=== PATIENT | male | born 1995 | race Caucasian/White ===

== ENCOUNTER 2018-05-08 16:55 | Emergency (ER) | payer BC, OTHER | END 2018-05-08 18:03 | disposition home or self-care (01) | LOC: MADERS 16:55 | DX: B34.9 Viral infection, unspecified (principal) | CPT/HCPCS: 87804; 99283 ==

== ENCOUNTER 2018-06-03 10:53 | Emergency (ER) | payer BC, OTHER ==
[2018-06-03 11:29] LABS: Bilirubin Negative (Negative); Blood, Urine Trace (Negative); Clarity Hazy (Clear); Glucose, Urine (Dipstick) Negative (Negative); Leukocyte Negative (Negative); Nitrite Negative (Negative); Protein, Urine (Dipstick) 30 mg/dL (Neg-Trace); Specific Gravity, Urine 1.025 (1.005-1.030); Urobilinogen 0.2 mg/dL (0.2-1.0); pH, Urine 5.5 (5.0-9.0)
[2018-06-03 11:35] LABS: Bacteria/HPF Rare-Few HPF (None Seen); RBC/HPF 0-3 HPF (0-3); WBC/HPF None Seen HPF (0-3)
[2018-06-03] MEDS ORDERED: Prochlorperazine 10 MG/2 ML VIAL ONE (11:50)
== END 2018-06-03 11:55 | disposition home or self-care (01) ==
LOC: MADERS 10:53
DX: K52.9 Noninfective gastroenteritis and colitis, unspecified (principal)
CPT/HCPCS: 81003; 81015; 82274; 83630; 87045; 87046; 87328; 87329; 87449; 87899; 96372; J0780

== ENCOUNTER 2018-07-11 19:29 | Emergency (ER) | payer BC, OTHER ==
[2018-07-11] MEDS ORDERED: methylPREDNISolone Sod Succ/PF 125 MG/2 ML VIAL ONE (20:11)
[2018-07-11] MEDS ORDERED: Water For Inject, Bacteriostat 0 ML ONE (20:11)
[2018-07-11] MEDS ORDERED: diphenhydrAMINE 50 MG/ML VIAL ONE (20:11)
[2018-07-11 20:35] LABS: #Basophils 0.1 thou/uL (0.0-0.2); #Eosinphils 0.1 thou/uL (0.0-0.7); #Lymphocytes 3.6 thou/uL (1.20-3.40); #Monocytes 1.2 thou/uL (0.11-0.59); %Basophils 0.8 % (0.0-1.0); %Eosinophils 0.5 % (0.0-10.0); %Lymphocytes 25.9 % (21.0-51.0); %Monocytes 8.2 % (0.0-10.0); %Neutrophils 64.6 % (42.0-75.0); Hemoglobin 13.7 g/dL (14.0-18.0); Mean Corpuscular HGB CONC 34.1 g/dL (32.0-36.0); Mean Corpuscular Hemoglobin 29.9 pg (27.0-31.0); Mean Corpuscular Volume 87.6 fL (78.0-98.0); Mean Platelet Volume 8.8 fL (7.4-10.4); Platelet Count 171 thou/uL (130-400); Red Blood Cell (RBC) Count 4.57 mill/uL (4.70-6.10)
--- NOTE | 2018-07-11 20:36 | RAD ---
PORTABLE CHEST: 07/11/18 HISTORY: Cough. Lungs appear clear. No infiltrate. Heart and mediastinum unremarkable. IMPRESSION: Negative chest. POS: AGW
[2018-07-11 21:00] LABS: ALT (SGPT) 20 U/L (8-55); AST (SGOT) 15 U/L (5-34); Albumin 4.4 g/dL (3.5-5.0); Alkaline Phosphatase 92 U/L (40-150); Anion Gap 14 mmol/L (10-20); BUN (Urea Nitrogen) 14 mg/dL (8.9-20.6); Bilirubin, Total 0.8 mg/dL (0.2-1.2); Calc. Creatinine Clearance 0 mL/min (70-130); Calcium 9.3 mg/dL (7.8-10.44); Carbon Dioxide 25 mmol/L (22-29); Chloride 105 mmol/L (98-107); Estimated GFR-MDRD Greater than 90; Globulin 2.8 g/dL (2.4-3.5); Glucose 112 mg/dL (70-105); Protein, Total 7.2 g/dL (6.0-8.3); Sodium 141 mmol/L (136-145)
[2018-07-11 21:03] LABS: Potassium 2.9 mmol/L (3.5-5.1)
[2018-07-11] MEDS ORDERED: Potassium Chloride 20 MEQ TAB ONE (21:11)
== END 2018-07-11 21:20 | disposition home or self-care (01) ==
LOC: MADERS 19:29
DX: L27.0 Generalized skin eruption due to drugs and medicaments taken internally (principal); T36.1X5A Adverse effect of cephalosporins and other beta-lactam antibiotics, initial encounter; J20.9 Acute bronchitis, unspecified
CPT/HCPCS: 36415; 71045; 80053; 85025; 96374; 96375; J1200; J2930

== ENCOUNTER 2018-07-13 15:07 | Emergency (ER) | payer BC, OTHER ==
[2018-07-13] MEDS ORDERED: Phenergan/Codeine 10-6.25mg/5ml UDCUP ONE (15:35)
--- NOTE | 2018-07-13 15:47 | RAD ---
PORTABLE CHEST: HISTORY: Chest pain. FINDINGS: Lungs are clear. Heart and mediastinum unremarkable. IMPRESSION: Negative chest. POS: OFF
[2018-07-13 15:49] LABS: #Basophils 0.1 thou/uL (0.0-0.2); #Lymphocytes 2.1 thou/uL (1.20-3.40); #Monocytes 0.6 thou/uL (0.11-0.59); %Basophils 0.6 % (0.0-1.0); %Eosinophils 0.1 % (0.0-10.0); %Lymphocytes 13.4 % (21.0-51.0); %Monocytes 3.5 % (0.0-10.0); %Neutrophils 82.5 % (42.0-75.0); Hemoglobin 14.8 g/dL (14.0-18.0); Mean Corpuscular HGB CONC 32.5 g/dL (32.0-36.0); Mean Corpuscular Hemoglobin 29.1 pg (27.0-31.0); Mean Corpuscular Volume 89.5 fL (78.0-98.0); Mean Platelet Volume 8.2 fL (7.4-10.4); Platelet Count 204 thou/uL (130-400); RBC Distribution Width 11.7 % (11.5-14.5); Red Blood Cell (RBC) Count 5.07 mill/uL (4.70-6.10); White Blood Cell (WBC) Count 15.8 thou/uL (4.8-10.8)
[2018-07-13 16:04] LABS: ALT (SGPT) 19 U/L (8-55); AST (SGOT) 12 U/L (5-34); Albumin 4.1 g/dL (3.5-5.0); Alkaline Phosphatase 89 U/L (40-150); Anion Gap 13 mmol/L (10-20); BUN (Urea Nitrogen) 11 mg/dL (8.9-20.6); Bilirubin, Total 0.4 mg/dL (0.2-1.2); Calc. Creatinine Clearance 0 mL/min (70-130); Calcium 8.9 mg/dL (7.8-10.44); Carbon Dioxide 24 mmol/L (22-29); Chloride 110 mmol/L (98-107); Estimated GFR-MDRD 85; Globulin 2.7 g/dL (2.4-3.5); Glucose 147 mg/dL (70-105); Potassium 4.1 mmol/L (3.5-5.1); Protein, Total 6.8 g/dL (6.0-8.3); Sodium 143 mmol/L (136-145)
[2018-07-13] MEDS ORDERED: Azithromycin 250 MG TAB ONE (16:08)
== END 2018-07-13 16:25 | disposition home or self-care (01) ==
LOC: MADERS 15:07
DX: J20.9 Acute bronchitis, unspecified (principal); R07.1 Chest pain on breathing
CPT/HCPCS: 36415; 71045; 80053; 84484; 85025; 93005; 94760; 96372; J1040

== ENCOUNTER 2019-01-29 18:09 | Emergency (ER) | payer BC, OTHER | END 2019-01-29 18:26 | disposition home or self-care (01) | LOC: MADERS 18:09 | DX: R05 Cough (principal) | CPT/HCPCS: 99281 ==

== ENCOUNTER 2019-01-30 18:27 | Emergency (ER) | payer BC, OTHER ==
[2019-01-30] MEDS ORDERED: prednisoLONE 15 MG/5 ML UDCUP ONE (19:09)
== END 2019-01-30 20:00 | disposition home or self-care (01) ==
LOC: MADERS 18:27
DX: L50.0 Allergic urticaria (principal)
CPT/HCPCS: 96372; 99282; J1040; J7510

== ENCOUNTER 2019-12-03 22:10 | Emergency (ER) | payer BC, OTHER | END 2019-12-03 22:20 | disposition left against medical advice (07) | LOC: MADERS 22:10 | DX: Z53.21 Procedure and treatment not carried out due to patient leaving prior to being seen by health care provider (principal) ==

== ENCOUNTER 2019-12-11 14:33 | Emergency (ER) | payer OTHER | END 2019-12-11 15:40 | disposition home or self-care (01) | LOC: MADERS 14:33 | DX: R21 Rash and other nonspecific skin eruption (principal) | CPT/HCPCS: 99281 ==

== ENCOUNTER 2020-02-14 19:36 | Emergency (ER) | payer BC, MEDICAID, OTHER ==
[2020-02-14] MEDS ORDERED: Amoxicillin/Potassium Clav 875 MG TAB ONE (20:10)
== END 2020-02-14 20:16 | disposition home or self-care (01) ==
LOC: MADERS 19:36
DX: S61.251A Open bite of left index finger without damage to nail, initial encounter (principal); W55.01XA Bitten by cat, initial encounter
CPT/HCPCS: 99283